=== PATIENT | female | born 1990 | race Hispanic/Latino ===

== ENCOUNTER 2020-05-06 05:17 | Emergency (ER) | payer SELFPAY ==
[2020-05-06 05:34] VITALS: BP 126/79
[2020-05-06] MEDS ORDERED: SODIUM CHLORIDE 0.9% 1000 ML 1,000 ML IV ONE (07:48)
[2020-05-06] MEDS ORDERED: KETOROLAC 30 MG/1 ML INJ IV ONE (07:48)
[2020-05-06] MEDS ORDERED: cefTRIAXone/NS 1 GM/50 ML 1 GM/50 ML BAG IV ONE (07:49)
--- NOTE | 2020-05-06 07:52 | Emergency Department Report ---
ED Eye Problem HPI - General Chief complaint: Eye Problems Stated complaint: RT SIDE FACIAL/EYE SWELLING Time Seen by Provider: 05/06/20 07:40 Source: patient Mode of arrival: Ambulatory Limitations: No Limitations - History of Present Illness Initial comments: 30-year-old female presents to the ER today complaining of swelling pain and redness around her right eye. Patient states that this started mildly this morning around 1 AM today. She states that she thought it was caused by something she may have touched something on the railing of the hotel that she is staying and then touched her eye but she states that the redness, and swelling and pain started gradually worsening. She states that majority of the pain is to the corner of her eye.. She reports mild increased tearing but no pus drainage. She denies any pain with eyeball movement. She denies any pain or redness to her right eyeball. She denies any vision changes. She denies any fever or chills. She denies any history of staph infections/MRSA. MD chief complaint: eye pain, eye redness -: Sudden Location: right eye - Related Data Previous Rx's Medication Instructions Recorded Last Taken Type Amoxicillin/Potassium Clav 1 each PO Q12HR #20 tablet 05/06/20 Unknown Rx [Augmentin 875-125 Tablet] Allergies Allergy/AdvReac Type Severity Reaction Status Date / Time No Known Allergies Allergy Verified 05/06/20 07:45 ED Review of Systems ROS: Stated complaint: RT SIDE FACIAL/EYE SWELLING Other details as noted in HPI Constitutional: denies: chills, fever Eyes: other (Pain swelling redness around right eye). denies: eye discharge, vision change ENT: denies: ear pain, throat pain Respiratory: denies: cough, shortness of breath, wheezing Cardiovascular: denies: chest pain, palpitations Gastrointestinal: denies: abdominal pain, nausea, diarrhea Neurological: denies: headache, weakness, paresthesias Psychiatric: denies: anxiety, depression ED Past Medical Hx - Past Medical History Previous Medical History?: Yes Hx Diabetes: Yes - Surgical History Past Surgical History?: No - Social History Smoking Status: Current Every Day Smoker Substance Use Type: Alcohol, Marijuana - Medications Home Medications: Home Medications Medication Instructions Recorded Confirmed Last Taken Type Amoxicillin/Potassium Clav 1 each PO Q12HR #20 tablet 05/06/20 Unknown Rx [Augmentin 875-125 Tablet] ED Physical Exam - General Limitations: No Limitations General appearance: alert, in no apparent distress - Head Head exam: Present: atraumatic, normocephalic, normal inspection - Eye Eye exam: Present: PERRL, EOMI, periorbital swelling, periorbital tenderness, other (Patient with right periorbital cellulitis more so to the infraorbital region, with majority of the swelling noted to the infraorbital region and to the corner of the right eye. Patient has tenderness to palpation especially to the corner near the tear ducts. There is no induration or fluctuance. No apparent drainage from the eye. She has no pain with extraocular movement. No streaking redness.). Absent: conjunctival injection - ENT ENT exam: Present: normal exam - Neck Neck exam: Present: normal inspection - Respiratory Respiratory exam: Absent: respiratory distress - Cardiovascular Cardiovascular Exam: Present: regular rate - Neurological Exam Neurological exam: Present: alert, oriented X3, CN II-XII intact - Psychiatric Psychiatric exam: Present: normal affect, normal mood ED Course Vital Signs 05/06/20 05:29 Temperature 97.6 F Pulse Rate 87 Respiratory 18 Rate Blood Pressure 126/79 O2 Sat by Pulse 100 Oximetry ED Medical Decision Making - Medical Decision Making 0836 -- Pt with Right eye periorbital cellulitis suspect likely secondary to dacryocystitis. Given the severity of the cellulitis, recommended to patient the need to do labs and start IV abx and do CT orbits to r/o associated orbital cellulitis. Patient initially agreed but then when the nurse went to start IV and get labs patient refused. When I tried to talk to patient, she states she does not feel she needs to give blood and just wants the antibiotics. Explained again to patient the reason for lab work but she again refused the labs. I did offer patient IM rocephin but instructed her that she will need to sign out AMA because she is refusing labs and CT. Risk (vision loss, , loss of lifestyle, neurological dysfunction) of refusing labs/ct/iv abx again discussed with patient. Pt mentally capable of making her own decisions and expressed understanding of instructions and signed the form. Critical care attestation.: If time is entered above; I have spent that time in minutes in the direct care of this critically ill patient, excluding procedure time. ED Disposition Clinical Impression: Periorbital cellulitis of right eye, Dacryocystitis Disposition: DC-01 TO HOME OR SELFCARE Is pt being admited?: No Does the pt Need Aspirin: No Condition: Stable Instructions: Dacryostenosis (ED), Periorbital Cellulitis in Children (ED) Additional Instructions: It is very important that you start antibiotics and complete them. I recommend that you take Tylenol and/or ibuprofen for pain. You can apply warm compresses over the eye to help with swelling and pain. It is very important that you follow-up with the primary care doctor provided to you in the next 2 to 3 days for recheck but if your symptoms are worsening and he develop associated vision changes pain with movement of your eyeball, and fever (100.5) or higher, you need to return to ED immediately. Prescriptions: Amoxicillin/Potassium Clav [Augmentin 875-125 Tablet] 1 each PO Q12HR #20 tablet Referrals: PRIMARY CARE, [Primary Care Provider] - 3-5 Days Forms: AMA Form Time of Disposition: 08:30
[2020-05-06] MEDS ORDERED: LIDOCAINE-MPF (1%) 10 MG/1 ML VIAL 5 ML INFILTRATI ONE (08:26)
== END 2020-05-06 08:55 | disposition home or self-care (01) ==
LOC: ED 05:17
DX: L03.213 Periorbital cellulitis (principal); H04.309 Unspecified dacryocystitis of unspecified lacrimal passage; E11.9 Type 2 diabetes mellitus without complications; F17.200 Nicotine dependence, unspecified, uncomplicated; F12.90 Cannabis use, unspecified, uncomplicated; Z79.899 Other long term (current) drug therapy
CPT/HCPCS: 96372; 99282; J0696